=== PATIENT | male | born 1965 | race Two or more races ===

== ENCOUNTER 2017-04-19 08:30 | Outpatient (CLI) | payer OTHER ==
[~2017-04-19 08:30] MED LIST: ALLOPURINOL300 MG PO; CATAFLAM50 MG PO; INDOMETHACIN50 MG PO; LYRICA100 MG PO; LYRICA50 MG PO; NORFLEX100MG; PERCOCET 5-3251 EACH PO; ULTRACET PO; VOLTAREN100 GM; [UNRECOGNIZED DRUG - OTHER] PO
== END 2017-04-19 08:36 | disposition home or self-care (01) ==
LOC: LAB 08:30
DX: D64.89 Other specified anemias (principal); E88.89 Other specified metabolic disorders; D68.8 Other specified coagulation defects; N39.0 Urinary tract infection, site not specified; Z22.322 Carrier or suspected carrier of Methicillin resistant Staphylococcus aureus; E53.8 Deficiency of other specified B group vitamins

== ENCOUNTER 2017-04-19 09:48 | Outpatient (CLI) | payer OTHER | END 2017-04-19 15:13 | disposition home or self-care (01) | LOC: MRI 09:48 | DX: M54.5 Low back pain (principal) | CPT/HCPCS: 72148 ==

== ENCOUNTER → 2017-04-25 | Outpatient (CLI) | payer OTHER | END | disposition home or self-care (01) | LOC: RAD 09:55 | DX: Z76.89 Persons encountering health services in other specified circumstances (principal); M79.652 Pain in left thigh; M79.605 Pain in left leg ==

== ENCOUNTER 2017-05-03 15:18 | Inpatient (IN) | payer OTHER ==
[~2017-05-03] VITALS: Ht 152.4 cm; Wt 90.7 kg
[2017-05-11] MEDS ORDERED: LYRICA200 MG PO (13:04)
== END 2017-05-19 11:19 | disposition home or self-care (01) | DRG 470 ==
LOC: SURG 05-09 07:00 → O/R 05-16 06:27 → SURG 05-16 06:27
PROVIDERS: Orthopaedic Surgery
PROC: 3E0T3BZ Introduction of Anesthetic Agent into Peripheral Nerves and Plexi, Percutaneous Approach (ICD-10-PCS; 2017-05-16)
PROC: 0SRD0J9 Replacement of Left Knee Joint with Synthetic Substitute, Cemented, Open Approach (ICD-10-PCS; principal; 2017-05-16 09:30)
DX: M17.12 Unilateral primary osteoarthritis, left knee (principal)

== ENCOUNTER → 2017-06-08 18:23 | Outpatient (CLI) | payer OTHER ==
[~2017-06-08 18:23] MED LIST changes: +LYRICA200 MG PO
== END | disposition home or self-care (01) ==
LOC: LAB 18:23
DX: M25.462 Effusion, left knee (principal); E88.89 Other specified metabolic disorders; D68.9 Coagulation defect, unspecified; E83.42 Hypomagnesemia; N39.0 Urinary tract infection, site not specified; D64.9 Anemia, unspecified; M06.4 Inflammatory polyarthropathy

== ENCOUNTER 2017-06-09 10:27 | Inpatient (IN) | payer OTHER ==
[~2017-06-09] VITALS: Ht 172.7 cm; Wt 93.0 kg
[2017-06-14] MEDS ORDERED: PROTEINEX1 TA1 PO (08:15)
[2017-06-14] MEDS ORDERED: FAMOTIDINE20 MG PO (08:15)
[2017-06-14] MEDS ORDERED: BACTROBAN NASAL1 GM NASAL (11:56)
== END 2017-06-14 15:18 | disposition home health service (06) | DRG 467 ==
LOC: CIR.AMB 10:27 → SURG 18:07
PROVIDERS: Orthopaedic Surgery
PROC: 0SPW0JZ Removal of Synthetic Substitute from Left Knee Joint, Tibial Surface, Open Approach (ICD-10-PCS; 2017-06-09)
PROC: 0SBD0ZZ Excision of Left Knee Joint, Open Approach (ICD-10-PCS; 2017-06-09)
PROC: 0SRW0JZ Replacement of Left Knee Joint, Tibial Surface with Synthetic Substitute, Open Approach (ICD-10-PCS; principal; 2017-06-09 12:00)
PROC: 3E0U329 Introduction of Other Anti-infective into Joints, Percutaneous Approach (ICD-10-PCS; 2017-06-11)
PROC: 02HV33Z Insertion of Infusion Device into Superior Vena Cava, Percutaneous Approach (ICD-10-PCS; 2017-06-13)
PROC: 4A033R1 Measurement of Arterial Saturation, Peripheral, Percutaneous Approach (ICD-10-PCS; 2017-06-14)
PROC: 3E0F7GC Introduction of Other Therapeutic Substance into Respiratory Tract, Via Natural or Artificial Opening (ICD-10-PCS; 2017-06-14)
DX: M65.162 Other infective (teno)synovitis, left knee (principal); T84.54XA Infection and inflammatory reaction due to internal left knee prosthesis, initial encounter; Y83.8 Other surgical procedures as the cause of abnormal reaction of the patient, or of later complication, without mention of misadventure at the time of the procedure; Y92.098 Other place in other non-institutional residence as the place of occurrence of the external cause; M17.12 Unilateral primary osteoarthritis, left knee; Z22.321 Carrier or suspected carrier of Methicillin susceptible Staphylococcus aureus; B95.61 Methicillin susceptible Staphylococcus aureus infection as the cause of diseases classified elsewhere

== ENCOUNTER 2017-06-21 09:35 | Outpatient (CLI) | payer OTHER ==
[~2017-06-21 09:35] MED LIST changes: +BACTROBAN NASAL1 GM NASAL; +FAMOTIDINE20 MG PO; +PROTEINEX1 TA1 PO
== END 2017-06-21 09:48 | disposition home or self-care (01) ==
LOC: LAB 09:35
DX: D64.89 Other specified anemias (principal); M06.4 Inflammatory polyarthropathy

== ENCOUNTER 2017-06-29 11:57 | Outpatient (CLI) | payer OTHER | END 2017-06-29 12:07 | disposition home or self-care (01) | LOC: LAB 11:57 | DX: T84.54XD Infection and inflammatory reaction due to internal left knee prosthesis, subsequent encounter (principal); M25.462 Effusion, left knee ==

== ENCOUNTER 2017-07-08 11:07 | Outpatient (CLI) | payer OTHER | END 2017-07-08 11:17 | disposition home or self-care (01) | LOC: LAB 11:07 | DX: D64.9 Anemia, unspecified (principal); M06.4 Inflammatory polyarthropathy; M10.9 Gout, unspecified ==

== ENCOUNTER 2017-07-14 12:01 | Inpatient (IN) | payer OTHER ==
[~2017-07-14] VITALS: Ht 172.7 cm; Wt 90.7 kg
[2017-07-22] MEDS ORDERED: LEVAQUIN750 MG PO (14:25)
[2017-07-22] MEDS ORDERED: FAMOTIDINE20 MG PO (14:25)
[2017-07-22] MEDS ORDERED: ZOLPIDEM TARTRAT5 MG PO (14:25)
== END 2017-07-22 14:47 | disposition home or self-care (01) | DRG 194 ==
LOC: ER 12:01 → MEDJ 20:12
PROC: 3E0F7GC Introduction of Other Therapeutic Substance into Respiratory Tract, Via Natural or Artificial Opening (ICD-10-PCS; principal; 2017-07-14)
PROC: 4A033R1 Measurement of Arterial Saturation, Peripheral, Percutaneous Approach (ICD-10-PCS; 2017-07-14)
PROC: 05H533Z Insertion of Infusion Device into Right Subclavian Vein, Percutaneous Approach (ICD-10-PCS; 2017-07-14)
PROC: BB24YZZ Computerized Tomography (CT Scan) of Bilateral Lungs using Other Contrast (ICD-10-PCS; 2017-07-16)
PROC: BW28Y0Z Computerized Tomography (CT Scan) of Head using Other Contrast, Unenhanced and Enhanced (ICD-10-PCS; 2017-07-17)
PROC: B246ZZZ Ultrasonography of Right and Left Heart (ICD-10-PCS; 2017-07-17)
DX: J18.9 Pneumonia, unspecified organism (principal); T84.54XA Infection and inflammatory reaction due to internal left knee prosthesis, initial encounter; R78.81 Bacteremia; T80.211A Bloodstream infection due to central venous catheter, initial encounter; Y83.8 Other surgical procedures as the cause of abnormal reaction of the patient, or of later complication, without mention of misadventure at the time of the procedure; Y92.098 Other place in other non-institutional residence as the place of occurrence of the external cause; D69.59 Other secondary thrombocytopenia; B96.5 Pseudomonas (aeruginosa) (mallei) (pseudomallei) as the cause of diseases classified elsewhere
CPT/HCPCS: 70496

== ENCOUNTER 2017-07-14 12:29 | Outpatient (CLI) | payer OTHER | END 2017-07-14 12:49 | disposition home or self-care (01) | LOC: LAB 12:29 | DX: M25.40 Effusion, unspecified joint (principal); M10.9 Gout, unspecified ==

== ENCOUNTER 2017-09-19 11:48 | Outpatient (CLI) | payer OTHER ==
[~2017-09-19 11:48] MED LIST changes: +LEVAQUIN750 MG PO; +ZOLPIDEM TARTRAT5 MG PO
== END 2017-09-19 12:05 | disposition home or self-care (01) ==
LOC: RAD 11:48 → SONOGRAMA 11:48 → RAD 12:05
DX: M54.2 Cervicalgia (principal); M54.5 Low back pain; M25.511 Pain in right shoulder

== ENCOUNTER 2019-04-24 10:17 | Outpatient (CLI) | payer OTHER | END 2019-04-24 10:20 | disposition home or self-care (01) | LOC: RAD 10:17 | DX: R07.89 Other chest pain (principal); R05 Cough ==

== ENCOUNTER → 2020-03-11 | Outpatient (CLI) | payer OTHER | END | disposition home or self-care (01) | LOC: MRI 07:49 | PROVIDERS: ATTEND Anesthesiology Pain Medicine | DX: M47.897 Other spondylosis, lumbosacral region (principal); M51.36 Other intervertebral disc degeneration, lumbar region | CPT/HCPCS: 72148 ==

== ENCOUNTER 2020-05-12 23:10 | Inpatient (IN) | payer OTHER ==
[~2020-05-12] VITALS: Ht 172.7 cm; Wt 89.8 kg
[2020-05-12] MEDS ORDERED: NASAL MIST126 ML (23:22)
[2020-05-12] MEDS ORDERED: PRILOSEC OTC20 MG (23:23)
== END 2020-05-15 17:00 | disposition home or self-care (01) | DRG 866 ==
LOC: ER 23:10 → MEDI 05-13 12:27
PROVIDERS: ADMIT Specialist; ATTEND Specialist
PROC: CF261ZZ Tomographic (Tomo) Nuclear Medicine Imaging of Liver and Spleen using Technetium 99m (Tc-99m) (ICD-10-PCS; principal; 2020-05-15)
DX: A90 Dengue fever [classical dengue] (principal); D69.59 Other secondary thrombocytopenia; F10.10 Alcohol abuse, uncomplicated; Z20.822 Contact with and (suspected) exposure to COVID-19

== ENCOUNTER 2020-06-01 07:40 | Outpatient (CLI) | payer OTHER ==
[~2020-06-01 07:40] MED LIST changes: +NASAL MIST126 ML; +PRILOSEC OTC20 MG
== END 2020-06-01 07:51 | disposition home or self-care (01) ==
LOC: SONOGRAMA 07:40 → MAMO-SONO 09:45
PROVIDERS: ATTEND Internal Medicine Gastroenterology
DX: R10.84 Generalized abdominal pain (principal)

== ENCOUNTER 2020-10-25 13:21 | Emergency (ER) | payer OTHER ==
[~2020-10-25] VITALS: Ht 172.7 cm; Wt 90.7 kg
== END 2020-10-25 19:43 | disposition home or self-care (01) ==
LOC: ER 13:21
DX: T84.020A Dislocation of internal right hip prosthesis, initial encounter (principal); M25.551 Pain in right hip

== ENCOUNTER 2020-10-27 11:44 | Emergency (ER) | payer OTHER ==
[~2020-10-27] VITALS: Ht 172.7 cm; Wt 90.7 kg
[2020-10-27] MEDS ORDERED: NEURONTIN300 MG (11:57)
[2020-10-27] MEDS ORDERED: CYMBALTA60 MG PO (11:58)
== END 2020-10-27 18:05 | disposition home or self-care (01) ==
LOC: ER 11:44
DX: S73.004D Unspecified dislocation of right hip, subsequent encounter (principal); M25.551 Pain in right hip

== ENCOUNTER 2020-10-30 13:14 | Emergency (ER) | payer OTHER ==
[~2020-10-30] VITALS: Ht 172.7 cm; Wt 90.7 kg
[~2020-10-30 13:14] MED LIST changes: +CYMBALTA60 MG PO; +NEURONTIN300 MG
== END 2020-10-30 20:01 | disposition home or self-care (01) ==
LOC: ER 13:14
DX: M24.451 Recurrent dislocation, right hip (principal)

== ENCOUNTER 2021-01-05 12:19 | Outpatient (CLI) | payer OTHER | END 2021-01-05 12:21 | disposition home or self-care (01) | LOC: RAD 12:19 | PROVIDERS: ATTEND Orthopaedic Surgery | DX: M25.552 Pain in left hip (principal); M54.59 Other low back pain ==

== ENCOUNTER 2021-04-06 23:32 | Emergency (ER) | payer OTHER ==
[~2021-04-06] VITALS: Ht 172.7 cm; Wt 89.8 kg
[2021-04-07] MEDS ORDERED: ORPHENADRINE C100 MG PO (14:07)
[2021-04-07] MEDS ORDERED: DICLOFENAC POTA50 MG PO (14:07)
== END 2021-04-07 | disposition home or self-care (01) ==
LOC: ER 23:32
DX: T84.020A Dislocation of internal right hip prosthesis, initial encounter (principal); M48.05 Spinal stenosis, thoracolumbar region; X50.9XXA Other and unspecified overexertion or strenuous movements or postures, initial encounter; Y93.89 Activity, other specified; Y92.89 Other specified places as the place of occurrence of the external cause; Y99.8 Other external cause status; Z03.818 Encounter for observation for suspected exposure to other biological agents ruled out

== ENCOUNTER 2021-04-14 10:55 | Outpatient (CLI) | payer OTHER ==
[~2021-04-14 10:55] MED LIST changes: +DICLOFENAC POTA50 MG PO; +ORPHENADRINE C100 MG PO
== END 2021-04-14 11:04 | disposition home or self-care (01) ==
LOC: LAB 10:55
PROVIDERS: ATTEND General Practice
DX: M46.04 Spinal enthesopathy, thoracic region (principal)

== ENCOUNTER 2021-08-05 07:35 | Outpatient (CLI) | payer OTHER | END 2021-08-05 07:47 | disposition home or self-care (01) | LOC: RAD 07:35 | PROVIDERS: ATTEND General Practice | DX: M54.6 Pain in thoracic spine (principal); L03.90 Cellulitis, unspecified ==

== ENCOUNTER 2021-09-06 15:26 | Outpatient (CLI) | payer OTHER | END 2021-09-06 15:35 | disposition home or self-care (01) | LOC: RAD 15:26 | PROVIDERS: ATTEND Orthopaedic Surgery | DX: M16.12 Unilateral primary osteoarthritis, left hip (principal); T84.090D Other mechanical complication of internal right hip prosthesis, subsequent encounter ==

== ENCOUNTER 2021-12-17 10:38 | Outpatient (CLI) | payer OTHER ==
[~2021-12-17 10:38] MED LIST changes: +ETODOLAC300 MG PO; +PREGABALIN50 MG PO; +TRAMADOL HCL50 MG PO
== END 2021-12-17 11:01 | disposition home or self-care (01) ==
LOC: TOM 10:38
PROVIDERS: ATTEND Internal Medicine Pulmonary Disease
DX: J44.1 Chronic obstructive pulmonary disease with (acute) exacerbation (principal); J44.9 Chronic obstructive pulmonary disease, unspecified; Z77.22 Contact with and (suspected) exposure to environmental tobacco smoke (acute) (chronic)

== ENCOUNTER 2022-03-08 09:19 | Emergency (ER) | payer OTHER ==
[~2022-03-08] VITALS: Ht 172.7 cm; Wt 93.0 kg
[2022-03-08] MEDS ORDERED: LYRICA20 MG/1 ML PO (09:31)
[2022-03-08] MEDS ORDERED: OMEPRAZOLE MAGN20 MG PO (09:32)
== END 2022-03-08 11:26 | disposition home or self-care (01) ==
LOC: ER 09:19
DX: M62.838 Other muscle spasm (principal)

== ENCOUNTER 2022-11-18 16:38 | Emergency (ER) | payer OTHER ==
[~2022-11-18] VITALS: Ht 172.7 cm; Wt 95.3 kg
[~2022-11-18 16:38] MED LIST changes: +LYRICA20 MG/1 ML PO; +OMEPRAZOLE MAGN20 MG PO
== END 2022-11-18 21:42 | disposition home or self-care (01) ==
LOC: ER 16:38
DX: R10.32 Left lower quadrant pain (principal)

== ENCOUNTER 2022-12-20 07:48 | Outpatient (CLI) | payer OTHER | END 2022-12-20 07:49 | disposition home or self-care (01) | LOC: NUCLEAR 07:48 | PROVIDERS: ATTEND Internal Medicine | DX: I25.118 Atherosclerotic heart disease of native coronary artery with other forms of angina pectoris (principal); I11.9 Hypertensive heart disease without heart failure; E78.2 Mixed hyperlipidemia ==

== ENCOUNTER 2023-01-12 10:13 | Day surgery (SDC) | payer OTHER ==
[2023-01-06 11:28] LABS: HEMATOCRIT 44.1 % (39.0-48.0); HEMOGLOBIN 14.4 g/dL (13-16.00); MEAN CELL VOLUME 83.9 fL (80.0-100.00); MEAN CORPUSCULAR HEMOGLOBIN 27.5 pg (27.00-32.0); MEAN CORPUSCULAR HGB CONC 32.8 g/dl (32.0-36.0); PLATELET COUNT 200 K/uL (150-450); RED BLOOD COUNT 5.25 M/uL (4.00-6.00); RED CELL DISTRIBUTION WIDTH 14.5 % (11.5-14.5)
[2023-01-06 11:29] LABS: URINE APPEARANCE Clear; URINE BILIRRUBIN Negative (NEGATIVE); URINE BLOOD Negative; URINE COLOR Yellow; URINE GLUCOSE Negative (NEGATIVE); URINE LEUKOCYTE Negative; URINE NITRATE Negative; URINE PROTEIN Negative (NEGATIVE)
[2023-01-06 11:34] LABS: URINE BACTERIA 25.1 uL (0.0-1933); URINE EPITHELIAL CELLS 2.9 uL (0.0-38.8); URINE RBC 5.8 uL (0.0-20.8); URINE WBC 4.4 uL (0.0-23.2)
[2023-01-06 11:52] LABS: PARTIAL THROMBOPLASTIN TIME 28.5 SECONDS (22.0-34.0); PROTHROMBIN TIME 10.5 SECONDS (9.0-11.5)
[2023-01-06 11:55] LABS: CALCIUM 8.9 mg/dL (8.5-10.1); CREATININE SERUM 0.64 mg/dL (0.70-1.30); GFR 128.9; POTASSIUM 4.34 mEq/L (3.5-5.1)
[2023-01-12] MEDS ORDERED: TYLENOL ARTHRI650 MG PO (13:04)
[2023-01-12] MEDS ORDERED: TRAMADOL HCL50 MG PO (13:04)
[2023-01-12] MEDS ORDERED: MIRALAX17 GM PO (13:04)
[2023-01-12] MEDS ORDERED: KETO10TA2 PO (13:04)
== END 2023-01-12 17:40 | disposition home or self-care (01) ==
LOC: CIR.AMB 10:13
PROVIDERS: ATTEND Surgery
DX: K40.90 Unilateral inguinal hernia, without obstruction or gangrene, not specified as recurrent (principal); I10 Essential (primary) hypertension; R10.9 Unspecified abdominal pain; Z20.822 Contact with and (suspected) exposure to COVID-19
CPT/HCPCS: 49650; C1781

== ENCOUNTER 2024-02-24 17:19 | Inpatient (IN) | payer OTHER ==
[~2024-02-24] VITALS: Ht 172.7 cm; Wt 212.7 kg
[~2024-02-24 17:19] MED LIST changes: +KETO10TA2 PO; +MIRALAX17 GM PO; +TYLENOL ARTHRI650 MG PO
--- NOTE | 2024-02-24 17:40 | NUR ---
PTE ALERTA Y ORIENTADO X3. REFIERE TENER REEMPLAZO DE CADERE DERECHA POR DR.RAMON MIDDLETON. PTE REFIERE QUE SE DISLOCO LA CADERA DERECHA CUANDO SE DOBLO A RECPGER ALGO. SE GABRIELA SV Y SE UBICA.
[2024-02-24] MEDS ORDERED: ACETAMINOPHEN WITH CODEINE 1 UDTAB TABLET PO ONE (18:00)
--- NOTE | 2024-02-24 18:03 | NUR ---
PTE ALERTA Y ORIENTADO X3, SE ORIENTA SOBRE TX MEDICO Y REFIERE ACEPTAR. SE ADMINISTRA MED RADHA ORDEN MEDICA Y NO PRESENTA REACCION. PEND XRAY A REALIZAR
[2024-02-24] MEDS ORDERED: 0.9 % SODIUM CHLORIDE 250 ML IV SCH (19:00)
[2024-02-24] MEDS ORDERED: PROPOFOL 10,000 MCG/ML VIAL IV PUSH ONE (19:00)
--- NOTE | 2024-02-24 21:40 | NUR ---
SE ASISTE A DR ANTONIO Y DR HILARIO EN REPOSICIONAR CADERA DE PACIENTE. SE CONECATA PACIENTE A MONITOR CARDIACO Y OXIMETRIA DE PUL[place]. SE CONECTA OXIGENO 3LITROS. SE ADMINISTRA MEDICACION RADHA ORDEN MEDICA A LO CUAL PTE REACCIONA CORECTAMENTE. SE ASISTE A DR LO CUAL NO FUE CON EXITO. SE CLARISSA EL MISMO EDUCADO SOBRE EL PROCESO A SEGUIR EN CUBICULO.
[2024-02-24] MEDS ORDERED: KETOROLAC TROMETHAMINE 30 MG VIAL IU PRN (22:00)
[2024-02-24] MEDS ORDERED: ACETAMINOPHEN 325 MG TABLET PO PRN (22:00)
[2024-02-25 02:06] LABS: URINE APPEARANCE Clear; URINE BILIRRUBIN Negative (NEGATIVE); URINE BLOOD Negative; URINE COLOR Yellow; URINE GLUCOSE Negative (NEGATIVE); URINE KETONE Negative (NEGATIVE); URINE LEUKOCYTE Negative; URINE NITRATE Negative; URINE PROTEIN Negative (NEGATIVE); URINE UROBILINOGEN 0.2 E.U./dl
[2024-02-25 02:10] LABS: URINE BACTERIA 9.7 uL (0.0-1933); URINE EPITHELIAL CELLS 2.5 uL (0.0-38.8); URINE RBC 6.6 uL (0.0-20.8); URINE WBC 2.5 uL (0.0-23.2)
[2024-02-25 02:19] LABS: HEMATOCRIT 42.5 % (39.0-48.0); HEMOGLOBIN 14.2 g/dL (13-16.00); MEAN CELL VOLUME 83.4 fL (80.0-100.00); MEAN CORPUSCULAR HEMOGLOBIN 27.8 pg (27.00-32.0); MEAN CORPUSCULAR HGB CONC 33.4 g/dl (32.0-36.0); PLATELET COUNT 209 K/uL (150-450); RED CELL DISTRIBUTION WIDTH 14.8 % (11.5-14.5)
[2024-02-25 02:29] LABS: ALBUMIN 3.8 gm/dL (3.4-5.0); BILIRUBIN TOTAL 0.45 mg/dL (0.3-1.2); CALCIUM 8.9 mg/dL (8.5-10.1); CREATININE SERUM 0.74 mg/dL (0.70-1.30); GFR 108.63; GLOBULINA 2.9 G/DL (2.4-3.5); POTASSIUM 3.88 mEq/L (3.5-5.1); TOTAL PROTEIN 6.7 gm/dL (6.4-8.2)
[2024-02-25 02:31] LABS: URINE CAST 0.29 uL (0.0-1.40)
[2024-02-25 02:45] LABS: INR 1.03; PARTIAL THROMBOPLASTIN TIME 26.2 SECONDS (22.0-34.0); PROTHROMBIN TIME 11.2 SECONDS (9.0-11.5)
[2024-02-25 08:00] VITALS: BP 146/84; O2SAT 98
[2024-02-25 08:03] VITALS: BP 122/74; O2SAT 96
[2024-02-25] MEDS ORDERED: FAMOTIDINE/PF 20 MG/2 ML VIAL IV SCH (09:00)
[2024-02-25] MEDS ORDERED: ACETAMINOPHEN 500 MG GEL..CAP PO PRN (10:30)
[2024-02-25] MEDS ORDERED: SODIUM CHLORIDE 0.45 % 1,000 ML IV SCH (13:00)
[2024-02-25] MEDS ORDERED: ONDANSETRON 4 MG TAB.RAPDIS PO PRN (13:00)
[2024-02-25] MEDS ORDERED: ONDANSETRON HCL 2 MG/ML VIAL IV PRN (13:00)
[2024-02-25 16:00] VITALS: BP 122/74; O2SAT 96
[2024-02-26 00:30] VITALS: BP 120/75; BP 149/83; O2SAT 97; O2SAT 99
[2024-02-26 08:00] VITALS: BP 113/55; O2SAT 97
== END 2024-02-26 10:46 | disposition home or self-care (01) | DRG 538 ==
LOC: ER 17:21 → SURH 22:14
PROVIDERS: General Practice; Orthopaedic Surgery; ADMIT Internal Medicine; ATTEND Internal Medicine
PROC: 0QS6XZZ Reposition Right Upper Femur, External Approach (ICD-10-PCS; principal; 2024-02-25 10:00)
DX: S73.034A Other anterior dislocation of right hip, initial encounter (principal)

== ENCOUNTER 2024-04-16 14:21 | Outpatient (CLI) | payer OTHER | END 2024-04-16 14:44 | disposition home or self-care (01) | LOC: SONOGRAMA 14:21 | PROVIDERS: ATTEND Orthopaedic Surgery | DX: M25.561 Pain in right knee (principal); M17.11 Unilateral primary osteoarthritis, right knee; M25.511 Pain in right shoulder; M79.641 Pain in right hand; M79.642 Pain in left hand; G56.01 Carpal tunnel syndrome, right upper limb; G56.02 Carpal tunnel syndrome, left upper limb; M25.552 Pain in left hip ==

== ENCOUNTER 2024-05-17 14:31 | Emergency (ER) | payer OTHER ==
[~2024-05-17] VITALS: Ht 172.7 cm; Wt 97.5 kg
[2024-05-17] MEDS ORDERED: ZIPSOR25 MG PO (14:41)
[2024-05-17] MEDS ORDERED: 0.9 % SODIUM CHLORIDE 500 ML IV ONE (16:00)
[2024-05-17] MEDS ORDERED: PROPOFOL 10,000 MCG/ML VIAL ONE (17:41)
[2024-05-17] MEDS ORDERED: PROPOFOL 10,000 MCG/ML VIAL IV PUSH ONE (17:45)
== END 2024-05-17 21:26 | disposition home or self-care (01) ==
LOC: ER 14:33
DX: T84.020A Dislocation of internal right hip prosthesis, initial encounter (principal); W18.39XA Other fall on same level, initial encounter; Y93.89 Activity, other specified; Y92.89 Other specified places as the place of occurrence of the external cause; M19.09 Primary osteoarthritis, other specified site

== ENCOUNTER 2024-10-24 08:42 | Outpatient (CLI) | payer OTHER ==
[~2024-10-24 08:42] MED LIST changes: +ZIPSOR25 MG PO
== END 2024-10-24 08:45 | disposition home or self-care (01) ==
LOC: TOM 08:42
PROVIDERS: ATTEND Orthopaedic Surgery
DX: M79.641 Pain in right hand (principal); M79.642 Pain in left hand; T84.020D Dislocation of internal right hip prosthesis, subsequent encounter

== ENCOUNTER 2024-10-31 08:19 | Outpatient (CLI) | payer OTHER | END 2024-10-31 08:36 | disposition home or self-care (01) | LOC: SONOGRAMA 08:19 | PROVIDERS: ATTEND Internal Medicine Gastroenterology | DX: R10.9 Unspecified abdominal pain (principal); R94.5 Abnormal results of liver function studies; K75.81 Nonalcoholic steatohepatitis (NASH) ==

== ENCOUNTER → 2024-11-06 07:39 | Outpatient (CLI) | payer OTHER ==
[2024-11-06 08:23] LABS: BASO % 0.5 % (0.1-1.2); EOS # 0.31 (0.04-0.54); EOS % 3.2 % (0.7-7.0); LYMPH # 2.90 (1.18-3.74); LYMPH % 30.0 % (19.3-53.1); MEAN PLATELET VOLUME 9.50 fl (9.4-12.4); MONO # 0.86 (0.24-0.82); MONO % 8.9 % (4.7-12.5); NEUT # 5.50 (1.56-6.13); NEUT % 56.8 % (34.0-71.1); RED CELL DISTRIBUTION WIDTH 13.7 % (11.6-14.4)
[2024-11-06 08:24] LABS: URINE APPEARANCE Clear; URINE BILIRRUBIN Negative (NEGATIVE); URINE BLOOD Negative; URINE COLOR Yellow; URINE GLUCOSE Negative (NEGATIVE); URINE KETONE Trace (NEGATIVE); URINE LEUKOCYTE Negative; URINE NITRATE Negative; URINE PROTEIN Negative (NEGATIVE); URINE UROBILINOGEN 1.0 E.U./dl
[2024-11-06 08:25] LABS: URINE EPITHELIAL CELLS 1.8 uL (0.0-38.8); URINE RBC 4.1 uL (0.0-20.8); URINE WBC 2.1 uL (0.0-23.2)
[2024-11-06 08:26] LABS: URINE BACTERIA 3.5 uL (0.0-1933); URINE CAST 0.14 uL (0.0-1.40)
[2024-11-06 08:42] LABS: BUN CREA RATIO 17.0 (7.0-25.0); CREATININE SERUM 0.71 mg/dL (0.70-1.30); GFR 113.55; GLUCOSE FASTING 126.0 mg/dL (65-100); OSMOLALITY SERUM 286.0 MOSM/KG (275-295)
[2024-11-06 08:49] LABS: INR 1.0
== END | disposition home or self-care (01) ==
LOC: LAB 07:39
PROVIDERS: ATTEND Surgery
DX: D68.9 Coagulation defect, unspecified (principal); G56.01 Carpal tunnel syndrome, right upper limb; Z01.812 Encounter for preprocedural laboratory examination; Z01.818 Encounter for other preprocedural examination

== ENCOUNTER 2024-11-07 08:24 | Outpatient (CLI) | payer OTHER | END 2024-11-07 08:37 | disposition home or self-care (01) | LOC: SONOGRAMA 08:24 | PROVIDERS: ATTEND Internal Medicine Gastroenterology | DX: R10.9 Unspecified abdominal pain (principal); R94.5 Abnormal results of liver function studies; K75.81 Nonalcoholic steatohepatitis (NASH) ==